=== PATIENT | female | born 1975 | race Caucasian/White ===

== ENCOUNTER 2019-11-29 08:48 | Inpatient (IN) | payer OTHER, SELFPAY ==
--- NOTE | ~2019-11-29 | US_ITS ---
US right upper quadrant INDICATION: Epigastric pain. Nausea and vomiting. PROCEDURE: Realtime right upper abdominal ultrasound. COMPARISON: No prior studies for comparison. FINDINGS: The pancreas is normal without focal mass or pancreatic ductal dilation. Liver echotexture is increased, consistent with fatty infiltration. There are gallstones. Mild gallbladder wall thick ening. The gallbladder is normal without stones, gallbladder wall thickening or pericholecystic fluid. Comm on bile duct measures 4.6 mm. No sonographic Cervantes's sign. IMPRESSION: 1: Cholelithiasis with mild gallbladder wall thickening. Consider cholecystitis in the appropriate cl inical setting. 2: Hepatic steatosis. Reviewed, dictated and finalized at location A. IMPRESSION: 1: Cholelithiasis with mild gallbladder wall thickening. Consider cholecystitis in the appropriate clinical setting. 2: Hepatic steatosis.
--- NOTE | ~2019-11-29 | CT_ITS ---
EXAMINATION: CT abdomen pelvis w con DATE: 11/29/2019 10:41 INDICATION: Abdomen pain TECHNIQUE: Computed tomography (CT) of the abdomen and pelvis was performed with 100 cc Omnipaque 350 intravenous contrast. The dose-length product was 1227.08 mGy-cm. Automated exposure control and ite rative reconstruction technique were employed. COMPARISON: None. FINDINGS: Lung bases are unremarkable. Heart size normal. No significant pleural or pericardial effus ion. Small hiatal hernia. Fatty infiltration of the liver. Gallbladder wall appears mildly thickened with possible pericholecys tic fluid. The spleen, pancreas, adrenal glands and kidneys are unremarkable. Nonobstructive bowel ga s pattern. Unremarkable appendix. No lymphadenopathy. No significant vascular abnormality. No free ai r or free fluid. No acute osseous abnormality. IMPRESSION: 1. Mild gallbladder wall thickening with possible pericholecystic fluid. Consider cholecystitis in th e appropriate clinical setting. Reviewed, dictated and finalized at location A. IMPRESSION: 1. Mild gallbladder wall thickening with possible pericholecystic fluid. Consid er cholecystitis in the appropriate clinical setting.
[2019-11-29 08:51] VITALS: BP 140/71; PULSE 66; RESP 18; TEMP 36.4; O2SAT 100
[2019-11-29 09:13] LABS: Basophils Percent Auto 0.3 % (0.2-1.2); Eosinophils Absolute Auto 0.1 K/mm3 (0-0.3); Hematocrit 38.4 % (37.0-47.0); Hemoglobin 12.3 g/dL (12.0-15.0); Immature Granulocyte Absolute 0.02 K/mm3 (0.00-0.031); Immature Granulocyte Percent A 0.2 % (0-0.5); Lymphocytes Absolute Auto 1.98 K/mm3 (0.9-3.2); Mean Corpuscular Hemoglobin 29.6 pg (26-34); Mean Corpuscular Volume 92.5 fl (80-100); Mean Platelet Volume 10.9 fl (7.4-10.4); Monocytes Absolute Auto 0.5 K/mm3 (0.1-0.6); Neutrophils Percent Auto 69.5 % (45.5-73.1); Platelet Count Result 332 k/mm3 (150-375); Red Blood Count 4.15 M/mm3 (4.2-5.4); Red Cell Distribution Width 13.9 % (11.5-14.5); White Blood Count 8.6 K/mm3 (4.5-10.0)
[2019-11-29 09:17] LABS: Add Urine Microscopic? YES; Appearance Urine Cloudy (Clear); Bacteria Urine Trace /hpf; Bilirubin Urine Negative (Negative); Blood Urine Negative (Negative); Color Urine Yellow (Yellow); Glucose Urine UA Negative (Negative); Ketones Urine Negative (Negative); Leukocyte Esterase Ur Negative LEU/UL (Negative); Mucus Urine Rare /lpf; Nitrate Urine Negative (Negative); Protein Urine Negative (Negative); RBC Urine 0-2 /hpf (0-2); Specific Grav Ur 1.012 (1.001-1.035); Squamous Epithelial Cell Urine Many /hpf (Few); Urobilinogen Urine Negative mg/dL (<2.0); WBC Urine 0-3 /hpf
[2019-11-29 09:48] LABS: Alanine Aminotransferase 337 U/L (4-35); Albumin Level 4.3 g/dL (3.5-5.1); Alkaline Phosphatase 127 U/L (38-126); Anion Gap 7 mmol/L (8-16); Aspartate Amino Transferase 517 U/L (14-36); Bilirubin,Total 2.2 mg/dL (0.2-1.3); Blood Urea Nitrogen 16 mg/dL (7-17); Calcium 9.3 mg/dL (8.4-10.2); Carbon Dioxide 31 mmol/L (22-30); Chloride 101 mmol/L (98-107); Estimated CRCL calculation 96 ml/min; Estimated Glomerular Filt Rate > 60; Glucose 104 mg/dL (65-105); Potassium 4.5 mmol/L (3.4-5.0); Sodium 139 mmol/L (137-145)
[2019-11-29 10:03] LABS: Lipase 4648 U/L (23-300)
--- NOTE | 2019-11-29 11:39 | ED.ABDPAIN ---
HPI - Abdominal Pain General Chief Complaint: Abdominal Pain Stated Complaint: ABD Pain Time Seen by Provider: 11/29/19 09:05 Source: patient Mode of arrival: ambulatory History of Present Illness HPI narrative: 44-year-old with a history of hypertension, pituitary adenoma here with complaints of epigastric pain since middle of the night. Patient states that she woke up at 2:00 with severe pain, patient states that she spoke to telemetry doc who recommended to come to the ER. Patient presently states that her pain has much improved. She has no history of nausea or vomiting or fever. MD elicited complaint: abdominal pain Pertinent past history: none Onset (ago): hour(s) (8) Pain Consistency: now resolved Location: epigastric Severity: moderate Quality: aching Radiation: RUQ and epigastric Migration to: other (Back) Exacerbating factors: nothing Relieving factors: nothing Related Data Patient : No Home Medications Medication Instructions Recorded Confirmed escitalopram oxalate mg 11/29/19 losartan-hydrochlorothiazide tablet 11/29/19 metoprolol succinate PO 11/29/19 omega-3 fatty acids [Fish Oil] 1,000 mg PO DAILY 11/29/19 Allergies Allergy/AdvReac Type Severity Reaction Status Date / Time codeine Allergy Fainting Verified 11/29/19 08:53 Review of Systems Review of Systems: All systems reviewed & are unremarkable except as noted in HPI and below Constitutional: Constitutional: Reports no additional constitutional complaints Eyes: Eyes: Reports no additional eye complaints ENT: Reports system reviewed and no additional complaints, except as documented Cardiovascular: Cardiovascular: Reports no additional cardiovascular complaints Respiratory: Respiratory: Reports no additional respiratory complaints Musculoskeletal: Musculoskeletal: Reports no additional musculoskeletal complaints Neurologic: Reports system reviewed and no additional complaints, except as documented Exam Narrative: Exam Narrative: GENERAL: Well-appearing, well-nourished, and in no acute distress. HEAD: Normocephalic, atraumatic. EYES: PERRLA and EOMI. ENT: Nares clear, no rhinorrhea or epistaxis. Mucous membranes moist. NECK: Supple. CHEST: Clear to auscultation. No respiratory distress. HEART: Regular rate and rhythm. No murmur heard. Normal peripheral pulses. ABDOMEN: Soft, obese mild tenderness in the epigastric area, nondistended, normal active bowel sounds. EXTREMITIES: Normal range of motion. No edema. SKIN: Warm, dry, no rash. NEURO: No focal deficits. Alert and oriented x3. PSYCH: Normal mood and affect. Course Course Emergency Course: Patient at this time has no significant amount of pain, I have discussed her labs, CT findings. Will admit to the hospitalist did discuss with Dr. Quevedo also recommend consult with GI and surgery. Vital Signs Vital signs: Vital Signs Temperature 36.4 C L 11/29/19 08:51 Pulse Rate 66 11/29/19 08:51 Respiratory Rate 18 11/29/19 08:51 Blood Pressure 140/71 11/29/19 08:51 Pulse Oximetry 100 11/29/19 08:51 Temperature 36.4 C L 11/29/19 08:51 Pulse Rate 66 11/29/19 08:51 Respiratory Rate 18 11/29/19 08:51 Blood Pressure 140/71 11/29/19 08:51 Pulse Oximetry 100 11/29/19 08:51 MDM - Abdominal Pain Lab Data Result diagrams: 11/29/19 09:07 11/29/19 09:07 Labs: Lab Results 11/29/19 11/29/19 11/29/19 Range/Units 09:07 09:07 09:07 WBC 8.6 (4.5-10.0) K/mm3 RBC 4.15 L (4.2-5.4) M/mm3 Hgb 12.3 (12.0-15.0) g/dL Hct 38.4 (37.0-47.0) % MCV 92.5 (80-100) fl MCH 29.6 (26-34) pg MCHC 32.0 (32-36) g/dl RDW 13.9 (11.5-14.5) % Plt Count 332 (150-375) k/mm3 MPV 10.9 H (7.4-10.4) fl Immature Gran % (Auto) 0.2 (0-0.5) % Neut % (Auto) 69.5 (45.5-73.1) % Lymph % (Auto) 23.0 (18.3-44.2) % [place] % (Auto) 6.0 (2.6-8.5) % Eos % (Auto) 1.0 (0-4.4) % Baso
[2019-11-29 12:40] VITALS: BP 128/84; PULSE 84; RESP 18; TEMP 36.6; O2SAT 99
--- NOTE | 2019-11-29 13:02 | PM.CNGS ---
Assessment and Plan Assessment and plan (1) Acute pancreatitis: Qualifiers: Acute pancreatitis complication: no infection or necrosis Pancreatitis type: biliary Qualified Code(s): K85.10 - Biliary acute pancreatitis without necrosis or infection Code(s): K85.90 - Acute pancreatitis without necrosis or infection, unspecified Status: Acute Assessment and Plan: likely biliary in nature, will recheck labs in am, GI to see for poss ERCP (2) Acute cholecystitis: Code(s): K81.0 - Acute cholecystitis Status: Acute Assessment and Plan: start Zosyn, will need interval cholecystectomy (3) Hypertension: Code(s): I10 - Essential (primary) hypertension Status: Acute Assessment and Plan: mgmt per primary team History of Present Illness Consult details Consult date: 11/29/19 Reason for consult: gallstones Requesting physician: Isaías Gan MD Narrative: Pt is a 44 y/o F presenting to ED c/o 1 d h/o severe upper abd pain. Pt reports pain awoke her from sleep at approx 2 am. Pt reports pain is constant, sharp mostly localized to epigastrium, RUQ. Pt reports radiation of pain to her back. Pt reports assoc nausea, bloating, anorexia. Pt reports similar less severe episodes in the past. Review of Systems Constitutional: Constitutional: Reports anorexia, Denies chills, Denies fatigue, Denies fever(s), Denies headache(s), Denies malaise, Denies poor appetite, Denies weight gain and Denies weight loss Eyes: Eyes: Reports no additional eye complaints and Denies loss of vision ENT: Denies dysphagia, Denies headache(s), Denies hearing loss and Denies sore throat Cardiovascular: Cardiovascular: Reports no additional cardiovascular complaints, Denies chest pain, Denies syncope, Denies irregular heart rhythm, Denies leg edema and Denies dyspnea Respiratory: Respiratory: Reports no additional respiratory complaints, Denies cough and Denies dyspnea Gastrointestinal: Gastrointestinal: Reports abdominal pain, Reports bloating, Denies change in bowel habits, Denies change in stool character, Denies constipation, Denies dysphagia, Denies heartburn, Denies diarrhea, Reports nausea and Denies vomiting Genitourinary: Genitourinary: Denies urinary frequency, Denies dysuria and Denies urinary urgency Musculoskeletal: Musculoskeletal: Reports no additional musculoskeletal complaints, Denies myalgias, Denies arthralgias and Denies muscle cramps Integumentary/Breasts: Skin/Breast: Reports system reviewed and no additional complaints, except as docu, Denies non-healing lesions and Denies rash Neurologic: Reports system reviewed and no additional complaints, except as documented, Denies syncope, Denies headache(s) and Denies loss of vision Psychiatric: Psychiatric: Reports no additional psychiatric complaints Endocrine: Endocrine: Reports no additional endocrine complaints, Denies change in body appearance and Denies fatigue Hematologic/Lymphatic: Hematologic/Lymphatic: Reports no additional hematologic/lymphatic complaints, Denies easy bleeding, Denies easy bruising and Denies lymphadenopathy Allergic/Immunologic: Allergic/Immunologic: Reports no additional allergic/immunologic complaints Meds Home Medications and Allergies Home Medications Medication Instructions Recorded Confirmed Type escitalopram oxalate mg 11/29/19 History losartan-hydrochlorothiazide tablet 11/29/19 History metoprolol succinate PO 11/29/19 History omega-3 fatty acids [Fish Oil] 1,000 mg PO DAILY 11/29/19 History Allergies Allergy/AdvReac Type Severity Reaction Status Date / Time codeine AdvReac Fainting Verified 11/29/19 11:58 Vital Signs Vital Signs - 24 hr 11/29/19 08:51 11/29/19 12:40 Temperature 36.4 C L 36.6 C Pulse Rate 66 84 Respiratory Rate 18 18 Blood Pressure 140/71 128/84 Pulse Oximetry 100 99 Exam Const: General: cooperative, no acute distress and well developed Nu
[2019-11-29 13:48] VITALS: BP 128/80; PULSE 78; RESP 18; TEMP 36.7; O2SAT 99
--- NOTE | 2019-11-29 13:51 | PC.NURSE ---
This patient, Mile Elias, was admitted to Medical Room 349-01. Patient/family oriented to hospital policies and general routines including ID bracelet, bed and alarms, visiting hours, pain management, procedures, bathroom and other care routines, personal items, smoking policy, room service/diet, and visiting hours. Valuables list has been completed. Information on how to activate the Rapid Response Team has been discussed. Patient/Family are encouraged to report perceived risks to care and to ask questions if they do not understand what they are told or what they should do.
--- NOTE | 2019-11-29 13:57 | PM.IMHP ---
H&P: HPI History of Present Illness Date/Time: 11/29/19 13:57 Chief complaint: Pancreatitis, cholecystitis Narrative: Mile Elias is a 44 year old female Who stated that she recently started weight wat[facility] and has been dieting and exercising. She has lost over 40 lb since she has been at [facility]. The patient has been exercising more and has been having some pain between her shoulder blades which she thought was a muscle spasm or pulled muscle because of the exercise. 3 times this month she has had an episode where she has had epigastric discomfort in the middle night. She said that she tried to reposition herself and that would help some and she would rock with pain. But she would not take any medication to relieve the discomfort. She has had many times the pain would just go away on its own. She had episodes 2 other times in the went away on their own. However the today it woke her up at 2:00 a.m. this morning with severe pain which she rates 5-6. She said it was not severe but it was enough to keep her awake. She had epigastric discomfort and some nausea as well. But no fever chills. The patient was given Dilaudid in the emergency room as well as Zofran. She was started on Zosyn for cholecystitis. Her liver enzymes were elevated her lipase was 4648 giving her the diagnosis of pancreatitis. She had a CT of the abdomen which was read as mild gallbladder wall thickening with possible pericholecystic fluid. Consider cholecystitis in the appropriate clinical setting. Upper quadrant ultrasound was read as cholelithiasis with mild gallbladder wall thickening. Consider cholecystitis in the appropriate clinical setting. Hepatic steatosis. GI consult was placed as well as surgery. The surgeon has already seen the patient and recommended the GI consult for possible ERCP. It was noted that at some time patient will need a cholecystectomy. Date of service 11/29/2019 Review of Systems Review of Systems: All systems reviewed & are unremarkable except as noted in HPI and below Constitutional: Constitutional: Reports as per HPI and Reports no additional constitutional complaints Eyes: Eyes: Reports as per HPI and Reports no additional eye complaints ENT: Reports system reviewed and no additional complaints, except as documented and Reports Normal hearing present Cardiovascular: Cardiovascular: Reports no additional cardiovascular complaints Respiratory: Respiratory: Reports no additional respiratory complaints and Reports no additional respiratory complaints Gastrointestinal: Gastrointestinal: Reports as per HPI and Reports no additional gastrointestinal complaints Musculoskeletal: Musculoskeletal: Reports no additional musculoskeletal complaints Integumentary/Breasts: Skin/Breast: Reports system reviewed and no additional complaints, except as docu and Reports as per HPI Neurologic: Reports system reviewed and no additional complaints, except as documented, Reports as per HPI and Reports Normal hearing present Psychiatric: Psychiatric: Reports no additional psychiatric complaints and Reports as per HPI Endocrine: Endocrine: Reports no additional endocrine complaints Hematologic/Lymphatic: Hematologic/Lymphatic: Reports no additional hematologic/lymphatic complaints Allergic/Immunologic: Allergic/Immunologic: Reports no additional allergic/immunologic complaints [facility] Past Medical History Medical History (Updated 11/29/19 @ 14:03 by Katya Reese NP) Anxiety Pituitary adenoma treated with medication Surgical History Surgical History (Updated 11/29/19 @ 14:03 by Katya Reese NP) History of section, classical Family History Family History (Updated 11/29/19 @ 14:04 by Katya Reese NP) Mother Breast cancer Heart disease open heart surgery Father Hypertension Hyperlipidemia Social History Social History (Updated 11/29/19 @ 14:06 by Katya Reese NP) Social History: the
[2019-11-29 14:00] VITALS: BP 129/72; PULSE 62; RESP 18; TEMP 36.1; O2SAT 100
[2019-11-29] MEDS: SODIUM CHLORIDE 0.9% IV 1,000 ML 125 ML IV CONT ×2 (14:00→22:38)
[2019-11-29] MEDS: METOCLOPRAMIDE HCL INJ 10 MG/2 ML VIAL IV PUSH (14:28)
[2019-11-29] MEDS: ONDANSETRON INJ 4 MG/2 ML VIAL IV PUSH (19:40)
[2019-11-29 20:55] VITALS: BP 119/55; PULSE 71; RESP 14; TEMP 36.5; O2SAT 100
[2019-11-29] MEDS: FAMOTIDINE 20 MG/2 ML VIAL IV PUSH (21:42)
[2019-11-30 00:45] VITALS: BP 119/55
[2019-11-30 05:47] LABS: Basophils Percent Auto 0.4 % (0.2-1.2); Eosinophils Absolute Auto 0.1 K/mm3 (0-0.3); Eosinophils Percent Auto 1.2 % (0-4.4); Hematocrit 32.7 % (37.0-47.0); Hemoglobin 10.6 g/dL (12.0-15.0); Immature Granulocyte Absolute 0.02 K/mm3 (0.00-0.031); Immature Granulocyte Percent A 0.3 % (0-0.5); Lymphocytes Absolute Auto 1.85 K/mm3 (0.9-3.2); Lymphocytes Percent Auto 26.7 % (18.3-44.2); Mean Corpuscular HGB Conc 32.4 g/dl (32-36); Mean Corpuscular Hemoglobin 29.9 pg (26-34); Mean Corpuscular Volume 92.1 fl (80-100); Mean Platelet Volume 10.6 fl (7.4-10.4); Monocytes Absolute Auto 0.5 K/mm3 (0.1-0.6); Monocytes Percent Auto 6.6 % (2.6-8.5); Neutrophils Absolute Auto 4.5 K/mm3 (1.3-6.7); Neutrophils Percent Auto 64.8 % (45.5-73.1); Platelet Count Result 254 k/mm3 (150-375); Red Blood Count 3.55 M/mm3 (4.2-5.4); Red Cell Distribution Width 13.9 % (11.5-14.5); White Blood Count 6.9 K/mm3 (4.5-10.0)
[2019-11-30 06:22] LABS: Alanine Aminotransferase 312 U/L (4-35); Albumin Level 3.5 g/dL (3.5-5.1); Alkaline Phosphatase 142 U/L (38-126); Anion Gap 5 mmol/L (8-16); Aspartate Amino Transferase 280 U/L (14-36); Bilirubin,Total 1.3 mg/dL (0.2-1.3); Blood Urea Nitrogen 12 mg/dL (7-17); Calcium 8.1 mg/dL (8.4-10.2); Carbon Dioxide 28 mmol/L (22-30); Chloride 106 mmol/L (98-107); Cholesterol 117 mg/dL (0-200); Estimated CRCL calculation 86 ml/min; Estimated Glomerular Filt Rate > 60; Glucose 86 mg/dL (65-105); HDL Direct 34 mg/dL; Lipase 560 U/L (23-300); Magnesium 2.2 mg/dL (1.6-2.3); Potassium 3.8 mmol/L (3.4-5.0); Sodium 139 mmol/L (137-145); Triglycerides 84 mg/dL (<150)
[2019-11-30 06:26] LABS: LDL Cholesterol Direct 60 mg/dL
[2019-11-30 08:03] LABS: Free T4 Free Thyroxine Reflex 0.93 ng/dL (0.78-2.19)
[2019-11-30] MEDS: FAMOTIDINE 20 MG/2 ML VIAL IV PUSH ×2 (08:29→22:00)
[2019-11-30] MEDS: SODIUM CHLORIDE 0.9% IV 1,000 ML 125 ML IV CONT (08:29)
[2019-11-30 09:06] LABS: Total Triiodothyronine (T3) 1.14 NG/ML (0.97-1.69)
--- NOTE | 2019-11-30 12:13 | WPDGICN ---
Assessment and Plan Assessment and plan (1) Acute pancreatitis: Qualifiers: Acute pancreatitis complication: no infection or necrosis Pancreatitis type: biliary Qualified Code(s): K85.10 - Biliary acute pancreatitis without necrosis or infection Code(s): K85.90 - Acute pancreatitis without necrosis or infection, unspecified Status: Acute Assessment and Plan: Patient appears to have acute gallstone pancreatitis. Clinically she is improving. Elevated LFTs at the time of presentation are gradually improving as well. Suggesting passage of a common bile duct gallstone. Plan is for ERCP prior to eventual cholecystectomy. Will anticipate ERCP in the morning. Surgery is already seen the patient anticipate they will do so cholecystectomy subsequently (2) Gallstones: Code(s): K80.20 - Calculus of gallbladder without cholecystitis without obstruction Status: Acute GI Consult Note Consult date/time: 11/30/19 12:13 HPI: Mile Elias is a 44 year old female I am asked to see for gallstone pancreatitis. Patient states she was in her usual state of health till Saturday evening. She developed rather severe abdominal pain. Upon presented the emergency room was found to have elevated lipase consistent with pancreatitis. Gallstones were identified. Since that time she has had significant improvement. She has had occasional pain in the past that was similar but not as intense and did not last as long. Review of Systems Review of Systems: All systems reviewed & are unremarkable except as noted in HPI and below PMFSH Past Medical History Medical History Anxiety Pituitary adenoma treated with medication Surgical History Surgical History (Updated 11/29/19 @ 14:03 by Katya Reese NP) History of section, classical Family History Family History (Updated 11/29/19 @ 14:04 by Katya Reese NP) Mother Breast cancer Heart disease open heart surgery Father Hypertension Hyperlipidemia Social History Social History (Updated 11/29/19 @ 14:06 by Katya Reese NP) Social History: the patient lives with her Jim who is a durable power litigation attorney associate for healthcare. The patient is a full code. She has 1 child. She is a lifelong nonsmoker does not use any alcohol marijuana or illicit drugs. 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 Smoking status: Never smoker Alcohol intake: former Substance use: never Living arrangements: with family Occupation/Education: occupation Gender identity (if verbalized by the patient): Female Spiritual care concerns: No Meds Home Medications and Allergies Home Medications Medication Instructions Recorded Confirmed Type Women's Daily Multivitamin 1 tab-cap PO DAILY 11/29/19 11/29/19 History escitalopram oxalate 10 mg PO DAILY 11/29/19 11/29/19 History losartan-hydrochlorothiazide 1 tablet PO DAILY 11/29/19 11/29/19 History metoprolol succinate 25 mg PO DAILY 11/29/19 11/29/19 History omega-3 fatty acids [Fish Oil] 1,000 mg PO DAILY 11/29/19 11/29/19 History Allergies Allergy/AdvReac Type Severity Reaction Status Date / Time codeine AdvReac Fainting Verified 11/29/19 11:58 Vital Signs Vital Signs - 24 hr 11/29/19 12:40 11/29/19 13:48 11/29/19 14:00 Temperature 97.9 F 98.1 F 96.9 F L Pulse Rate 84 78 62 Respiratory Rate 18 18 18 Blood Pressure 128/84 128/80 129/72 Pulse Oximetry 99 99 100 11/29/19 20:55 11/30/19 00:45 Temperature 97.7 F Pulse Rate 71 Respiratory Rate 14 Blood Pressure 119/55 L 119/55 L Pulse Oximetry 100 Exam Narrative: Exam Narrative: Physical exam reveals patient to be alert. Vital signs stable. HEENT exam unremarkable. Lungs are clear to auscultation and percussion. Heart is without murmur or extra sounds. Abdominal exam bowel sounds are present soft nontender with no organomegaly.
--- NOTE | 2019-11-30 12:38 | PM.PNGS ---
Progress Note: A&P Assessment and Plan (1) Acute pancreatitis: Qualifiers: Acute pancreatitis complication: no infection or necrosis Pancreatitis type: biliary Qualified Code(s): K85.10 - Biliary acute pancreatitis without necrosis or infection Code(s): K85.90 - Acute pancreatitis without necrosis or infection, unspecified Status: Acute Assessment and Plan: resolving, start clears, recheck labs in am (2) Acute cholecystitis: Code(s): K81.0 - Acute cholecystitis Status: Acute Assessment and Plan: exam improved, clears, recheck labs in am, if cont improvement will plan for interval cholecystectomy Subjective Subjective Date/Time Seen: 11/30/19 12:38 feels better today, decreased pain, bloating Review of Systems Constitutional: Constitutional: Reports body ache(s), Denies chills, Reports fatigue, Denies increased appetite, Reports lethargy, Reports malaise, Reports poor appetite and Reports weakness Cardiovascular: Cardiovascular: Reports no additional cardiovascular complaints Respiratory: Respiratory: Reports no additional respiratory complaints Gastrointestinal: Gastrointestinal: Reports abdominal pain, Reports belching, Reports bloating, Reports constipation, Denies GI cramping, Denies diarrhea, Denies loose stools, Reports nausea and Denies vomiting Exam Const: General: cooperative, comfortable and no acute distress; No acute distress Resp: Effort & Inspection: normal respiratory effort Auscultation: clear to auscultation bilaterally Cardio: Rate: regular rate Rhythm: regular rhythm GI: Inspection: distended GI Palp: Yes abdominal tenderness, Yes Soft to palpation, No Firmness to palpation present (GI), Yes Tenderness to palpation present (GI), No Guarding due to palpation present (GI) and No Rigid due to palpation Other: soft, sl dist, mild TTP epigastrium/RUQ Objective Data Vital Signs Vital Signs: Vital Signs - 24 hr 11/29/19 12:40 11/29/19 13:48 11/29/19 14:00 Temperature 36.6 C 36.7 C 36.1 C L Pulse Rate 84 78 62 Respiratory Rate 18 18 18 Blood Pressure 128/84 128/80 129/72 Pulse Oximetry 99 99 100 11/29/19 20:55 11/30/19 00:45 Temperature 36.5 C Pulse Rate 71 Respiratory Rate 14 Blood Pressure 119/55 L 119/55 L Pulse Oximetry 100 Intake/Output Intake/Output: Intake & Output 11/27/19 11/28/19 11/29/19 11/30/19 23:59 23:59 23:59 23:59 Intake Total 1090 1100 Balance 1090 1100 Meds/Results Medications: Active Medications Generic Name Dose Route Start Last Admin Trade Name Freq PRN Reason Stop Dose Admin Famotidine 20 mg 11/29/19 21:00 11/30/19 08:29 Famotidine 20 Mg/2 Ml Vial IV PUSH 20 mg Q12HR ONEIL Administration Hydralazine HCl 10 mg 11/29/19 14:09 Hydralazine Hcl 20 Mg/Ml Vial IV PUSH Q8H PRN Blood Pressure - High Hydromorphone HCl 0.5 mg 11/29/19 11:50 Hydromorphone Hcl Inj (*Crx) 1 Mg/Ml Syr IV PUSH Q4H PRN Pain Rated 7-10 Sodium Chloride 1,000 mls @ 100 mls/hr 11/29/19 11:50 11/30/19 10:00 Normal Saline Iv IV CONT 100 mls/hr .Q10H ONEIL Infusion Piperacillin/Tazobactam/Dextrose 3.375 gm in 50 mls @ 100 mls/hr 11/29/19 18:00 11/30/19 12:05 Zosyn 3.375 Gm/D5w 50ml Pm IVPB 100 mls/hr Q6H ONEIL Administration Lorazepam 0.5 mg 11/29/19 14:09 Lorazepam Inj (*Crx) 2 Mg/Ml Vial IV PUSH Q6H PRN Anxiety Ondansetron HCl 4 mg 11/29/19 11:50 11/29/19 19:40 Ondansetron Inj 4 Mg/2 Ml Vial IV PUSH 4 mg Q4H PRN Administration Nausea Radiology Results: ITS Impressions Abdomen/Pelvis CT 11/29/19 10:45 IMPRESSION: 1. Mild gallbladder wall thickening with possible pericholecystic fluid. Consider cholecystitis in the appropriate clinical setting. Upper Quadrant Ultrasound 11/29/19 12:26 IMPRESSION: 1: Cholelithiasis with mild gallbladder wall thickening. Consider cholecystitis in the appropriate clinical setting.
--- NOTE | 2019-11-30 13:56 | PM.IMPN ---
Progress Note: A&P Assessment and Plan (1) Acute pancreatitis: Qualifiers: Acute pancreatitis complication: no infection or necrosis Pancreatitis type: biliary Qualified Code(s): K85.10 - Biliary acute pancreatitis without necrosis or infection Code(s): K85.90 - Acute pancreatitis without necrosis or infection, unspecified Status: Acute Assessment and Plan: Likely gallstone pancreatitis. Patient has shown significant clinical improvement overnight; no abdominal pain and no n/v today. Tolerating PO thus far. Lipase has downtrended to 560. Dr. Johnson consulted and appreciate recommendations. Appears patient will be going for ERCP tomorrow. NPO at midnight for ERCP and/or cholecystectomy per GI and General Surgery recommendations Await further rec from GI/General Surgery Continue with prn pain control Continue IV fluids; will slow rate to 75 mL/hr Check labs in am Monitor for improvement (2) Acute cholecystitis: Code(s): K81.0 - Acute cholecystitis Status: Acute Assessment and Plan: As above, appears to be improving, clinically, suggesting stone has passed. Dr. Nicolas appears to be planning on Surgery in near future. He has advanced diet to CLD today which she is tolerating well. Lilia Og for now Await further rec from Surgery/GI Monitor for improvement Continue pain control PRN (3) Anxiety: Code(s): F41.9 - Anxiety disorder, unspecified Status: Chronic Assessment and Plan: No acute issues Continue with P.r.n. Ativan. Resume escitalopram once tolerating diet after procedures (4) Hypertension: Code(s): I10 - Essential (primary) hypertension Status: Acute Assessment and Plan: BP 110s overnight Will resume home loasrtan/HCTZ and metoprolol today monitor closely (5) Dysuria: Code(s): R30.0 - Dysuria Status: Acute Assessment and Plan: Patient complaining of dysuria today; initial UA on arrival showing trace bacteria in otherwise grossly normal UA. Patient also on IV zosyn for cholecystitis Will obtain UA with reflex culture to reassess but suspect results to be unchanged/normal given antibiotics Trend symptoms during stay Subjective Date/time seen: 11/30/19 13:56 Interval history: Patient is a 44 yo F with history of anxiety and pituitary adenoma who is seen in follow up for suspected gallstone pancreatitis and cholecystitis. Patient states she feels much better today. She denies any abdominal pain, but did some left sided back pain earlier today which has since resolved. No N/v today. Tolerating her diet thus far today. She has been noting some dark urine and some dysuria; denies ever having a UTI. She has no other complaints. Denies f/c/s, headaches, dizziness, lightheadedness, cp/palpitations, sob/cough, changes in BMs, calf pain/swelling. Review of Systems Review of Systems: All systems reviewed & are unremarkable except as noted in HPI and below Exam Narrative: Exam Narrative: General: Patient resting in semi-zhang's position in no acute distress. HEENT: Normocephalic, EOMI, oral mucosa moist. Cardiovascular: Rate and rhythm are regular. No notable murmur, rub, or gallop. Respiratory: Lungs clear to auscultation all [place]. Non-labored breathing. Abdomen: Soft, non-tender, non-distended, bowel sounds present, hypoactive Extremities: Peripheral pulses intact. No edema. Neuro: No focal neurological deficits. Speech is clear. Objective Data Vital Signs Vital Signs: Vital Signs - 24 hr 11/29/19 14:00 11/29/19 20:55 11/30/19 00:45 Temperature 96.9 F L 97.7 F Pulse Rate 62 71 Respiratory Rate 18 14 Blood Pressure 129/72 119/55 L 119/55 L Pulse Oximetry 100 100 Intake/Output Intake/Ou
[2019-11-30 14:00] VITALS: BP 130/63; PULSE 60; RESP 14; TEMP 36.8; O2SAT 100
[2019-11-30 15:04] VITALS: PULSE 78
[2019-11-30] MEDS: LOSARTAN POTASSIUM 50 MG TABLET PO (15:04)
[2019-11-30] MEDS: METOPROLOL SUCCINATE EXT REL 25 MG TABCR PO (15:04)
[2019-11-30] MEDS: hydroCHLOROthiazide 12.5 MG CAPSULE PO (15:04)
[2019-11-30 15:27] LABS: Add Urine Microscopic? YES; Appearance Urine Clear (Clear); Bilirubin Urine Negative (Negative); Blood Urine Negative (Negative); Color Urine Yellow (Yellow); Glucose Urine UA Negative (Negative); Ketones Urine 2+ mg/dL (Negative); Leukocyte Esterase Ur Negative LEU/UL (Negative); Mucus Urine Rare /lpf; Nitrate Urine Negative (Negative); Protein Urine Negative (Negative); Squamous Epithelial Cell Urine Many /hpf (Few); Urobilinogen Urine Negative mg/dL (<2.0)
[2019-11-30 15:28] LABS: Specific Grav Ur 1.032 (1.001-1.035)
[2019-11-30 20:07] VITALS: BP 131/87; PULSE 63; RESP 16; TEMP 36.5; O2SAT 98
[2019-12-01] VITALS (10 sets, daily range): BP systolic 103–136; BP diastolic 53–91; PULSE 53–89; RESP 14–20; TEMP 36.3–36.7; O2SAT 97–100
[2019-12-01 06:14] LABS: Hematocrit 32.4 % (37.0-47.0); Hemoglobin 10.5 g/dL (12.0-15.0); Mean Corpuscular HGB Conc 32.4 g/dl (32-36); Mean Corpuscular Hemoglobin 30.1 pg (26-34); Mean Corpuscular Volume 92.8 fl (80-100); Mean Platelet Volume 10.9 fl (7.4-10.4); Platelet Count Result 253 k/mm3 (150-375); Red Blood Count 3.49 M/mm3 (4.2-5.4); Red Cell Distribution Width 13.9 % (11.5-14.5); White Blood Count 5.9 K/mm3 (4.5-10.0)
[2019-12-01 06:36] LABS: Alanine Aminotransferase 237 U/L (4-35); Albumin Level 3.5 g/dL (3.5-5.1); Alkaline Phosphatase 147 U/L (38-126); Anion Gap 8 mmol/L (8-16); Aspartate Amino Transferase 121 U/L (14-36); Blood Urea Nitrogen 7 mg/dL (7-17); Calcium 8.3 mg/dL (8.4-10.2); Carbon Dioxide 28 mmol/L (22-30); Chloride 104 mmol/L (98-107); Estimated CRCL calculation 86 ml/min; Estimated Glomerular Filt Rate > 60; Glucose 92 mg/dL (65-105); Lipase 144 U/L (23-300); Magnesium 2.4 mg/dL (1.6-2.3); Potassium 3.3 mmol/L (3.4-5.0); Sodium 140 mmol/L (137-145)
--- NOTE | 2019-12-01 07:41 | ECG_ITS ---
Measurements Intervals [place] Rate: 62 P: 0 MT: 171 QRS: 1 QRSD: 96 T: 18 QT: 404 QTc: 410 Interpretive Statements SINUS RHYTHM VOLTAGE CRITERIA FOR LVH BASELINE ARTIFACT- I, II, III, AVF, V5 BORDERLINE ECG Electronically Signed On 12-01-2019 8:25:16 CDT by Tom Coronado D.O.
--- NOTE | 2019-12-01 08:20 | WPDHPUPDATE1 ---
History and Physical Update Update Date/Time: 12/01/19 08:20 History and Physical has been reviewed, including an updated exam of the patient. There are NO changes in the patient's condition. Risks, benefits, and alternatives have been discussed and questions answered. Patient agrees to proceed with procedure.
[2019-12-01] MEDS: LACTATED RINGERS 1,000 ML 30 ML IV CONT ×2 (08:25→10:00)
--- NOTE | 2019-12-01 08:27 | WPDANESEPP ---
Anes - Eval Pre Procedure Procedure: Operation Date: 12/01/19 08:30 Proposed Procedures p Laparoscopic Cholecystectomy - Melinda Nicolas MD Date/Time: 12/01/19 08:27 Pre Op Diagnosis: Pancreatitis, cholecystitis Patient Data Age: 44 Gender: F Height: 1.57 m Weight: 100.6 kg Last Vital Signs Temp 36.6 C 12/01/19 04:29 Pulse 78 12/01/19 04:29 Resp 16 12/01/19 04:29 BP 130/78 12/01/19 04:29 Pulse Ox 100 12/01/19 04:29 Allergies Allergy/AdvReac Type Severity Reaction Status Date / Time codeine AdvReac Fainting Verified 11/29/19 11:58 Home Medications Medication Instructions Recorded Confirmed Type Women's Daily Multivitamin 1 tab-cap PO DAILY 11/29/19 11/29/19 History escitalopram oxalate 10 mg PO DAILY 11/29/19 11/29/19 History losartan-hydrochlorothiazide 1 tablet PO DAILY 11/29/19 11/29/19 History metoprolol succinate 25 mg PO DAILY 11/29/19 11/29/19 History omega-3 fatty acids [Fish Oil] 1,000 mg PO DAILY 11/29/19 11/29/19 History Laboratory Tests 11/30/19 11/30/19 12/01/19 05:34 15:09 05:54 WBC 5.9 K/mm3 K/mm3 (4.5-10.0) RBC 3.49 M/mm3 L M/mm3 (4.2-5.4) Hgb 10.5 g/dL L g/dL (12.0-15.0) Hct 32.4 % L % (37.0-47.0) MCV 92.8 fl fl (80-100) MCH 30.1 pg pg (26-34) MCHC 32.4 g/dl g/dl (32-36) RDW 13.9 % % (11.5-14.5) Plt Count 253 k/mm3 k/mm3 (150-375) MPV 10.9 fl H fl (7.4-10.4) Sodium Potassium Chloride Carbon Dioxide Anion Gap BUN Creatinine Estim Creat Clear Calc Estimated GFR Glucose Calcium Magnesium Total Bilirubin AST ALT Alkaline Phosphatase Total Protein Albumin Lipase Total T3 1.14 NG/ML NG/ML (0.97-1.69) Urine Color Yellow (Yellow) Urine Appearance Clear (Clear) Urine pH 5.0 (5.0-9.0) Ur Specific [place] 1.032 (1.001-1.035) Urine Protein Negative mg/dL mg/dL (Negative) Urine Glucose (UA) Negative mg/dL mg/dL (Negative) Urine Ketones 2+ mg/dL H mg/dL (Negative) Ur Blood (Man) Negative (Negative) Urine Nitrate Negative (Negative) Urine Bilirubin Negative (Negative) Urine Urobilinogen Negative mg/dL mg/dL (<2.0) Leukocyte Esterase Rfl Negative NANCI/UL NANCI/UL (Negative) Urine WBC 4-6 /hpf H /hpf Ur Squamous Epith Cells Many /hpf H /hpf (Few) Urine Mucus Rare /lpf /lpf 12/01/19 05:54 WBC RBC Hgb Hct MCV MCH MCHC RDW Plt Count MPV Sodium 140 mmol/L mmol/L (137-145) Potassium 3.3 mmol/L L mmol/L (3.4-5.0) Chloride 104 mmol/L mmol/L (98-107) Carbon Dioxide 28 mmol/L mmol/L (22-30) Anion Gap 8 mmol/L mmol/L (8-16) BUN 7 mg/dL D mg/dL (7-17) Creatinine 0.80 mg/dL mg/dL (0.7-1.0) Estim Creat Clear Calc 86 ml/min ml/min Estimated GFR > 60 (59 - ) Glucose 92 mg/dL mg/dL (65-105) Calcium 8.3 mg/dL L mg/dL (8.4-10.2) Magnesium 2.4 mg/dL H mg/dL (1.6-2.3) Total Bilirubin 1.0 mg/dL mg/dL (0.2-1.3) AST 121 U/L H U/L (14-36) ALT 237 U/L H U/L (4-35) Alkaline Phosphatase 147 U/L H U/L (38-126) Total Protein 6.0 g/dL L g/dL (6.3-8.2) Albumin 3.5 g/dL g/dL (3.5-5.1) Lipase 144 U/L U/L (23-300) Total T3 Urine Color Urine Appearance Urine pH Ur Specific [place] Urine Protein Urine Glucose (UA) Urine Ketones Ur Blood (Man) Urine Nitrate Urine Bilirubin Urine Urobilinogen Leukocyte Esterase
--- NOTE | 2019-12-01 08:36 | WPDANESEFPP ---
Anes - Eval Final PreProcedure Day of Procedure 12/01/19 08:36 Patient weight: morbidly obese Heart: regular rate and rhythm Lungs: clear to auscultation Airway: Mallampati scale class II Neurological: alert and oriented Last oral intake: >/= 8 hours ASA classification: III Emergent: no Anesthetic plan: proceed Anesthesia type and monitoring: general ETT and standard monitoring Informed Consent: The patient's anesthetic plan and its attendant risks and benefits were discussed with the patient/family/POA. Questions were solicited and answers provided to the satisfaction of the patient/family/POA.
[2019-12-01] MEDS: BUPIVACAINE/EPINEPHRINE 0.5% 10 ML VIAL 30 ML INFILTRATE (09:02)
--- NOTE | 2019-12-01 09:35 | PM.PROC ---
Procedure Note - Detailed Date of procedure: 12/01/19 Pre-op diagnosis: Pancreatitis, cholecystitis Post-op diagnosis: same Procedure performed: laparoscopic cholecystectomy Description of procedure: The patient was taken to the operating room placed in the supine position. After adequate induction of general anesthesia, the patient was prepped and draped in normal sterile fashion. A time-out was then performed to verify the patient's identity as well as the procedure being performed. I then made a 5 mm incision in the infraumbilical region. Through this, a Veress needle was placed into the peritoneal cavity and CO2 gas was then insufflated. After adequate pneumoperitoneum was achieved, the Veress needle was removed and a 5 mm trocar was placed through this incision. I then placed the laparoscope through this trocar site and under direct visualization placed a further 12 mm subxiphoid port as well as 2 additional 5 mm ports in the right upper abdomen. The gallbladder was then identified and was noted to be moderately inflamed. I was able to place a grasper at the dome of the gallbladder and this was retracted anterior and cephalad up over the liver. A 2nd retractor was then placed at the infundibulum and retracted laterally, this allowed visualization of the triangle of [place]. I then was able to visualize the cystic duct in its entirety from its proximal insertion into the gallbladder, to its distal junction with the common hepatic/common bile duct junction. At this point, I carefully skeletonized the proximal cystic duct with the [place] dissector. I then clipped and transected the proximal cystic duct. Next I visualized the cystic artery. Again the artery was skeletonized, clipped, and transected. I then used the Bovie cautery to take down the peritoneal attachments of the gallbladder off the liver bed. Once the gallbladder specimen was completely detached, an endo-pouch was placed through the 12 mm port site. I then placed the gallbladder specimen into the Endo pouch and removed the endo-pouch from the 12 mm port site. The specimen will now be sent to pathology for further review. I then copiously irrigated the right upper quadrant. Hemostasis was noted in the liver bed, the clips were noted to be in good position on both the cystic duct stump and the cystic artery stump. No other pathology was noted in the right upper quadrant. I then moved the laparoscope to the subxiphoid port. No iatrogenic injury or other pathology was noted in the lower abdomen. At this point, the abdomen was desufflated and all ports removed. The fascia of the 12 mm subxiphoid port was closed with a 0 Vicryl figure of 8 suture. All port sites were then closed with 4.O Monocryl subcuticular sutures. Dermabond was placed on each incision. The patient tolerated the procedure well, was extubated in the operating room postoperative and will be transferred to the recovery room in stable condition. Implants: none Anesthesia: GETA Surgeon: Melinda Nicolas MD Estimated blood loss (mL): 10 Drains: No Packing: No Pathology: yes Complications: No immediate complications Condition: stable Disposition: PACU Findings: acute cholecystitis
[2019-12-01] MEDS: fentaNYL CITRATE INJ (*CRX) 100 MCG/2 ML VIAL 25 MCG IV PUSH ×8 (09:41→10:19)
[2019-12-01] MEDS: HYDROmorphone HCL INJ (*CRX) 1 MG/ML SYR 0.5 MG IV PUSH ×2 (11:10→17:29)
[2019-12-01] MEDS: ONDANSETRON INJ 4 MG/2 ML VIAL IV PUSH (11:10)
--- NOTE | 2019-12-01 15:51 | PM.DS ---
DS: Admitting Diagnosis Admitting Diagnosis Admitting Diagnosis: Pancreatitis, cholecystitis DS: Discharge Diagnosis Discharge Diagnosis (1) Acute pancreatitis: Qualifiers: Acute pancreatitis complication: no infection or necrosis Pancreatitis type: biliary Qualified Code(s): K85.10 - Biliary acute pancreatitis without necrosis or infection Code(s): K85.90 - Acute pancreatitis without necrosis or infection, unspecified Status: Acute Assessment and Plan: Likely gallstone pancreatitis. Lipase trending down. She went for Lap erick today by Dr. Nicolas and is feeling well without any complaints. Lipase normalized. (2) Acute cholecystitis: Code(s): K81.0 - Acute cholecystitis Status: Acute Assessment and Plan: As above, appears to be improving, clinically, suggesting stone has passed. Lap erick completed by Dr. Nicolas and she is feeling well. Eating and drinking without issues. LFTs were improving today. will recheck in 1 week. Follow up with Dr. Nicolas in 2 weeks. (3) Anxiety: Code(s): F41.9 - Anxiety disorder, unspecified Status: Chronic Assessment and Plan: No acute issues Continue home medications (4) Hypertension: Code(s): I10 - Essential (primary) hypertension Status: Acute Assessment and Plan: BP 110s overnight Continue home medications (5) Dysuria: Code(s): R30.0 - Dysuria Status: Acute Assessment and Plan: Patient complaining of dysuria today; initial UA on arrival showing trace bacteria in otherwise grossly normal UA. Patient also on IV zosyn for cholecystitis UA shows no acute signs of infection and many squamous cells showing contamination. DS: Summary Hospital Course Reason for hospitalization: Patient is a 44-year-old woman with a history intermittent epigastric discomfort for the last 3 months and became worse at 2:00 a.m. prior to arrival with associated nausea. Initial vitals showed Temperature of 97.5?, blood pressure 140/71, heart rate 66, oxygen saturation 100% on room air. Initial labs showed normal CBC with differential, CMP showed slight elevation to serum bicarb, elevated total bili at 2.2, elevated AST/ALT at 517 and 337, elevated alk-phos at 127, lipase elevated at 4648. Urinalysis showed no acute abnormality. Abdomen pelvis showed mild gallbladder wall thickening with possible pericholecystic fluid. Right upper quadrant ultrasound showed cholelithiasis with mild gallbladder wall thickening and hepatic steatosis. Consider cholecystitis in the appropriate clinical setting. Was admitted into the hospital for a acute cholecystitis and pancreatitis most likely secondary to gallbladder pancreatitis. She had consults to surgery and GI for further evaluation. Her labs continue to improve and she was started on IV Zosyn. She underwent a laparoscopic cholecystectomy today at 12/01/2019. She is doing well after surgery, up walking around, eating drinking without any issues and passing gas. Surgery feels comfortable with her being discharged at this time with some oral pain medications and to follow-up in 2 weeks for further evaluation. Patient understands and agrees with the plan all questions answered. Status at Discharge Cognitive/behavioral status at discharge: Stable, improved. Time Spent with Patient Time attestation: Total time spent providing and/or coordinating discharge services: Time spent: Greater than 30 minutes Exam Narrative: Exam Narrative: General: 44-year-old woman sitting up in bed drinking some water. Appears comfortable. In no acute distress. Skin: No jaundice or cyanosis. Good skin turgor. Neck: Full range of motion. Supple. Respir
== END 2019-12-01 18:10 | disposition home or self-care (01) | DRG 418 ==
LOC: ANHED 11:55 → ANH3MED 15:44
PROVIDERS: Nurse Practitioner; Physician Assistant; Surgery; Admitting Provider Internal Medicine; Emergency Provider Family Medicine; PCP Family Medicine; Visit Provider Physician Assistant
PROC: 0FT44ZZ Resection of Gallbladder, Percutaneous Endoscopic Approach (ICD-10-PCS; CPT 47562; principal; 2019-12-01 08:30)
DX: K85.10 Biliary acute pancreatitis without necrosis or infection (principal); K81.0 Acute cholecystitis; F41.9 Anxiety disorder, unspecified; I10 Essential (primary) hypertension; R30.0 Dysuria; R74.8 Abnormal levels of other serum enzymes; D35.2 Benign neoplasm of pituitary gland; Z79.899 Other long term (current) drug therapy
CPT/HCPCS: 36415; 74177; 76705; 80053; 80061; 81001; 81025; 83690; 83735; 84439; 84443; 84480; 85025; 85027; 88304; 93005; 99285; A9270; J1100; J1170; J2250; J2405; J2543; J2704; J2710; J2765; J3010; J3480; J7030; J7120; Q9967

== ENCOUNTER 2020-03-24 12:50 | Outpatient (CLI) | payer OTHER, SELFPAY ==
[2020-03-25 22:59] LABS: SARS-CoV-2 RNA PCR Negative
== END 2020-03-24 12:51 | disposition home or self-care (01) ==
LOC: CHSLAB 12:54
PROVIDERS: PCP Family Medicine; Visit Provider Family Medicine
DX: Z20.822 Contact with and (suspected) exposure to COVID-19 (principal)
CPT/HCPCS: C9803; U0003; U0005

== ENCOUNTER 2020-08-31 09:52 | Outpatient (CLI) | payer OTHER, SELFPAY ==
[2020-08-31 11:36] LABS: Alanine Aminotransferase 35 U/L (14-59); Alkaline Phosphatase 75 U/L (46-116); Anion Gap 12 mmol/L (8-16); Aspartate Amino Transferase 24 U/L (15-37); Bilirubin,Total 1.3 mg/dL (0.00-1.00); Blood Urea Nitrogen 19 mg/dL (7-18); Calcium 8.9 mg/dL (8.5-10.1); Carbon Dioxide 26 mmol/L (21-32); Chloride 101 mmol/L (98-108); Estimated Glomerular Filt Rate > 60; Free T4 Free Thyroxine 0.97 ng/dL (0.76-1.46); Glucose 85 mg/dL (70-99); Osmolality Calculated 289 mOsm/kg (285-295); Potassium 4.4 mmol/L (3.5-5.1); Sodium 139 mmol/L (136-145); Thyroid Stimulating Hormone 2.33 uIU/mL (0.36-3.74); Total Protein 7.1 g/dL (6.4-8.2)
[2020-09-04 23:07] LABS: Adrenocorticotropic Hormone 5 pg/mL (6-50)
[2020-09-05 19:27] LABS: Prolactin 42.7 ng/mL (***)
[2020-09-07 08:56] LABS: Cortisol Random 5.6 mcg/dL (***)
[2020-10-04 15:55] LABS: IGFBP-1 <5
== END 2020-08-31 09:53 | disposition home or self-care (01) ==
LOC: CHSLAB 10:00
PROVIDERS: PCP Family Medicine
DX: D35.2 Benign neoplasm of pituitary gland (principal)
CPT/HCPCS: 36415; 80053; 82024; 82533; 84146; 84439; 84443

== ENCOUNTER 2020-09-21 12:44 | Outpatient (CLI) | payer OTHER, SELFPAY ==
--- NOTE | ~2020-09-21 | XR_ITS ---
XR hip BI wo pelvis DATE: 09/21/2020 13:10 INDICATION: Bilateral hip pain, right greater than left, for 3 weeks. No known injury. TECHNIQUE: AP and lateral views of each hip COMPARISON: None FINDINGS: Incidentally noted is a transitional lumbosacral vertebra with sacralization pseudoarthrosi s on the left. The pubic symphysis and sacroiliac joints appear normal. Mild osteoarthritis at the hip joints, left greater than right. No fracture or dislocation, avascular necrosis or bone destruction of either hip. 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
[2020-09-21 13:55] LABS: Alanine Aminotransferase 38 U/L (14-59); Albumin Level 4.2 g/dL (3.4-5.0); Alkaline Phosphatase 83 U/L (46-116); Anion Gap 12 mmol/L (8-16); Aspartate Amino Transferase 23 U/L (15-37); Bilirubin,Total 0.9 mg/dL (0.00-1.00); Blood Urea Nitrogen 22 mg/dL (7-18); Calcium 9.3 mg/dL (8.5-10.1); Carbon Dioxide 28 mmol/L (21-32); Chloride 101 mmol/L (98-108); Estimated Glomerular Filt Rate > 60; Glucose 83 mg/dL (70-99); Osmolality Calculated 294 mOsm/kg (285-295); Potassium 4.4 mmol/L (3.5-5.1); Sodium 141 mmol/L (136-145); Total Protein 7.7 g/dL (6.4-8.2)
== END 2020-09-21 12:45 | disposition home or self-care (01) ==
LOC: CHSLAB 12:46
PROVIDERS: PCP Family Medicine; Visit Provider Family Medicine
DX: M25.551 Pain in right hip (principal); M25.552 Pain in left hip; E80.6 Other disorders of bilirubin metabolism
CPT/HCPCS: 36415; 73521; 80053

== ENCOUNTER 2021-08-08 09:59 | Outpatient (CLI) | payer OTHER, SELFPAY ==
[2021-08-08 10:23] LABS: Basophils Absolute Auto 0.03 K/mm3 (0.00-0.10); Basophils Percent Auto 0.4 % (0.0-1.0); Eosinophils Absolute Auto 0.22 K/mm3 (0.02-0.50); Eosinophils Percent Auto 2.6 % (1.0-6.0); Hematocrit 35.8 % (35.0-49.0); Hemoglobin 11.6 g/dL (12.0-15.0); Immature Granulocyte Absolute 0.03 K/mm3 (0.00-0.00); Immature Granulocyte Percent A 0.4 % (0.0-0.0); Lymphocytes Absolute Auto 2.45 K/mm3 (1.10-4.50); Lymphocytes Percent Auto 29.4 % (18.0-42.0); Mean Corpuscular HGB Conc 32.4 g/dL (32.0-36.0); Mean Corpuscular Hemoglobin 29.4 pg (27.0-31.0); Mean Corpuscular Volume 90.6 fL (78.0-102.0); Mean Platelet Volume 9.7 fl (9.2-11.8); Monocytes Absolute Auto 0.49 K/mm3 (0.10-0.90); Monocytes Percent Auto 5.9 % (2.0-11.0); Neutrophils Absolute Auto 5.1 K/mm3 (1.7-7.2); Neutrophils Percent Auto 61.3 % (50.0-70.0); Platelet Count Result 327 K/mm3 (150-420); Red Blood Count 3.95 M/mm3 (4.20-5.40); Red Cell Distribution Width 14.1 % (11.6-14.4); White Blood Count 8.3 K/mm3 (4.8-10.8)
--- NOTE | 2021-08-08 10:40 | ECG_ITS ---
Measurements Intervals [place] Rate: 71 P: 17 [place]: 160 QRS: 29 QRSD: 91 T: 47 QT: 393 QTc: 429 Interpretive Statements SINUS RHYTHM COMPARED TO ECG 12/01/2019 07:52:55 NO SIGNIFICANT CHANGES Electronically Signed On 08-08-2021 12:08:24 CDT by Yovani Mckeon M.D.
[2021-08-08 10:50] LABS: Alanine Aminotransferase 26 U/L (14-59); Albumin Level 3.5 g/dL (3.4-5.0); Alkaline Phosphatase 86 U/L (46-116); Anion Gap 7 mmol/L (8-16); Aspartate Amino Transferase 20 U/L (15-37); Bilirubin,Total 0.5 mg/dL (0.00-1.00); Blood Urea Nitrogen 16 mg/dL (7-18); Calcium 8.7 mg/dL (8.5-10.1); Carbon Dioxide 26 mmol/L (21-32); Chloride 103 mmol/L (98-108); Estimated Glomerular Filt Rate > 60; Glucose 103 mg/dL (70-99); Osmolality Calculated 283 mOsm/kg (285-295); Potassium 3.9 mmol/L (3.5-5.1); Sodium 136 mmol/L (136-145); Thyroid Stimulating Hormone 2.72 uIU/mL (0.36-3.74); Total Protein 7.3 g/dL (6.4-8.2); Uric Acid 6.1 mg/dL (2.6-6.0)
[2021-08-08 10:57] LABS: Hemoglobin A1C 6.2 % (<5.7)
[2021-08-08 11:05] LABS: Creatinine Urine 209.08 mg/dL (40-278); MALB Creatinine Ratio 90.2 mg/g (0-30); Microalbumin Urine Random 188.7 mg/L
[2021-08-09 11:20] LABS: Cholesterol 131 mg/dL (0-200); HDL Direct 47 mg/dL (40-60); LDL Cholesterol Calculated 66 mg/dL (<130); Triglycerides 92 mg/dL (0-150)
[2021-08-10 04:42] LABS: Prolactin 23.1 ng/mL (***)
[2021-08-11 11:31] LABS: Cortisol Random 4.9 mcg/dL (***)
[2021-08-11 12:13] LABS: Adrenocorticotropic Hormone 20 pg/mL (6-50)
== END 2021-08-08 10:00 | disposition home or self-care (01) ==
PROVIDERS: PCP Family Medicine
DX: R00.2 Palpitations (principal); M10.9 Gout, unspecified; I10 Essential (primary) hypertension; R73.9 Hyperglycemia, unspecified; E66.01 Morbid (severe) obesity due to excess calories; Z68.41 Body mass index [BMI] 40.0-44.9, adult
CPT/HCPCS: 36415; 80053; 80061; 82024; 82043; 82533; 83036; 84146; 84443; 84550; 85025; 93005

== ENCOUNTER 2021-11-28 11:04 | Outpatient (CLI) | payer OTHER, SELFPAY ==
[2021-11-28 11:19] LABS: Appearance Urine Clear (Clear); Bilirubin Urine Negative (Negative); Blood Urine Negative (Negative); Glucose Urine UA Negative (Negative); Ketones Urine Negative (Negative); Leukocyte Esterase Ur Negative (Negative); Nitrate Urine Negative (Negative); Protein Urine Negative (Negative); Specific Grav Ur 1.025 (1.010-1.020); Urobilinogen Urine 0.2 mg/dL (0.2-1.0)
[2021-11-28 11:25] LABS: Creatinine Urine 138.42 mg/dL (40-278); MALB Creatinine Ratio 12.2 mg/g (0-30); Microalbumin Urine Random 16.9 mg/L
[2021-11-28 11:27] LABS: Add Urine Microscopic? NO; Color Urine Light Yellow (Yellow)
== END 2021-11-28 11:05 | disposition home or self-care (01) ==
LOC: CHSLAB 11:08
PROVIDERS: PCP Family Medicine
DX: R73.03 Prediabetes (principal)
CPT/HCPCS: 81003; 82043

== ENCOUNTER 2022-03-20 09:58 | Outpatient (CLI) | payer OTHER, SELFPAY ==
[2022-03-20 10:47] LABS: Hemoglobin A1C 5.8 % (<5.7)
[2022-03-20 10:53] LABS: Creatinine Urine 121.44 mg/dL (40-278)
[2022-03-20 10:54] LABS: Alanine Aminotransferase 20 U/L (14-59); Albumin Level 3.5 g/dL (3.4-5.0); Alkaline Phosphatase 79 U/L (46-116); Anion Gap 8 mmol/L (8-16); Aspartate Amino Transferase 15 U/L (15-37); Bilirubin,Total 0.6 mg/dL (0.00-1.00); Blood Urea Nitrogen 15 mg/dL (7-18); Calcium 8.5 mg/dL (8.5-10.1); Carbon Dioxide 29 mmol/L (21-32); Chloride 103 mmol/L (98-108); Estimated Glomerular Filt Rate > 60; Glucose 88 mg/dL (70-99); Osmolality Calculated 289 mOsm/kg (285-295); Potassium 4.3 mmol/L (3.5-5.1); Sodium 140 mmol/L (136-145); Total Protein 6.7 g/dL (6.4-8.2)
[2022-03-20 11:01] LABS: MALB Creatinine Ratio 198.2 mg/g (0-30); Microalbumin Urine Random 240.7 mg/L
[2022-03-24 04:45] LABS: Prolactin 21.5 ng/mL (***)
== END 2022-03-20 09:59 | disposition home or self-care (01) ==
LOC: CHSLAB 10:03
PROVIDERS: PCP Family Medicine
DX: R73.03 Prediabetes (principal); D35.2 Benign neoplasm of pituitary gland
CPT/HCPCS: 36415; 80053; 82043; 83036; 84146

== ENCOUNTER 2023-05-31 07:31 | Outpatient (CLI) | payer OTHER, SELFPAY ==
[2023-05-31 08:08] LABS: Basophils Absolute Auto 0.04 K/mm3 (0.00-0.10); Basophils Percent Auto 0.4 % (0.0-1.0); Eosinophils Absolute Auto 0.27 K/mm3 (0.02-0.50); Eosinophils Percent Auto 2.9 % (1.0-6.0); Hemoglobin 11.6 g/dL (12.0-15.0); Immature Granulocyte Absolute 0.06 K/mm3 (0.00-0.00); Immature Granulocyte Percent A 0.7 % (0.0-0.0); Lymphocytes Absolute Auto 2.37 K/mm3 (1.10-4.50); Lymphocytes Percent Auto 25.9 % (18.0-42.0); Mean Corpuscular HGB Conc 31.4 g/dL (32-36); Mean Corpuscular Hemoglobin 28.2 pg (27.0-31.0); Mean Platelet Volume 9.9 fl (9.2-11.8); Monocytes Absolute Auto 0.48 K/mm3 (0.10-0.90); Monocytes Percent Auto 5.2 % (2.0-11.0); Neutrophils Absolute Auto 5.94 K/mm3 (1.70-7.20); Neutrophils Percent Auto 64.9 % (50.0-70.0); Platelet Count Result 370 K/mm3 (150-420); Red Blood Count 4.11 M/mm3 (4.20-5.40); Red Cell Distribution Width 15.3 % (11.6-14.4); White Blood Count 9.2 K/mm3 (4.8-10.8)
[2023-05-31 08:52] LABS: Creatinine Urine 202.24 mg/dL (40-278); MALB Creatinine Ratio 13.2 mg/g (0-30); Microalbumin Urine Random 26.7 mg/L
[2023-05-31 09:29] LABS: Alanine Aminotransferase 37 U/L (14-59); Albumin Level 3.6 g/dL (3.4-5.0); Alkaline Phosphatase 91 U/L (46-116); Anion Gap 8 mmol/L (4-12); Aspartate Amino Transferase 22 U/L (15-37); Bilirubin,Total 0.7 mg/dL (0.00-1.00); Blood Urea Nitrogen 18 mg/dL (7-18); Calcium 8.7 mg/dL (8.5-10.1); Carbon Dioxide 32 mmol/L (21-32); Chloride 100 mmol/L (98-108); Cholesterol 150 mg/dL (0-200); Estimated Glomerular Filt Rate > 60; Glucose 135 mg/dL (70-99); HDL Direct 51 mg/dL (40-60); LDL Cholesterol Calculated 81 mg/dL (<130); Osmolality Calculated 293 mOsm/kg (285-295); Potassium 4.3 mmol/L (3.5-5.1); Sodium 140 mmol/L (136-145); Thyroid Stimulating Hormone 2.66 uIU/mL (0.36-3.74); Total Protein 6.8 g/dL (6.4-8.2); Triglycerides 91 mg/dL (0-150)
== END 2023-05-31 07:32 | disposition home or self-care (01) ==
LOC: CHSLAB 07:36
PROVIDERS: PCP Family Medicine; Visit Provider Family Medicine
DX: I10 Essential (primary) hypertension (principal); R94.6 Abnormal results of thyroid function studies
CPT/HCPCS: 36415; 80053; 80061; 82043; 84443; 85025